=== PATIENT | male | born 1985 | race Caucasian/White ===

== ENCOUNTER 2017-03-06 20:31 | Emergency (ER) | payer MEDICAID ==
[~2017-03-06] VITALS: Ht 182.9 cm; Wt 70.0 kg
[~2017-03-06 20:31] MED LIST: BACT800T5 PO
[2017-03-06 20:33] VITALS: BP 146/98; PULSE 77; RESP 15; TEMP 98.3; O2SAT 99
[2017-03-06] MEDS ORDERED: CEPHALEXIN MONOHYDRATE 500 MG CAP PO ONE (22:15)
[2017-03-06] MEDS ORDERED: SULFAMETHOXAZOLE-TRIMETHOPRIM DS 800-160 MG TAB PO ONE (22:15)
[2017-03-06] MEDS ORDERED: CEPH-460 PO (22:16)
[2017-03-06] MEDS ORDERED: BACT800T5 PO (22:16)
--- NOTE | 2017-03-06 22:22 | PD ---
HPI Chief Complaint: Bite or Sting Time Seen by Provider: 22:11 Travel History International Travel<30 days: No Contact w/Intl Traveler<30days: No Traveled to known affect area: No History of Present Illness HPI 31-year-old white male presents to emergency department with complains of a area of redness and swelling to the right anterior thigh. He is unsure whether this was an insect bite. The area is been present now for the past 2-3 days. He denies any fever or chills. No drainage. It has become increasing painful and swollen. There is no exacerbating or palliative a activities. Pain is mild to moderate. Denies any recent illness or trauma. No history of prior skin infections. PFSH Past Medical History Narrative Medical Depression, kidney stones Autoimmune Disease: No Anxiety: No Depression: Yes Cancer: No Cardiovascular Problems: No Cerebrovascular Accident: Yes (TIA) Diabetes: No Patient Takes Glucophage: No Diminished Hearing: No Endocrine: No Gastrointestinal Disorders: No Genitourinary: Yes Immune Disorder: No Implanted Vascular Access Dvce: No Kidney Stones: Yes (2009) Musculoskeletal: Yes Psychiatric: Yes Reproductive: No Respiratory: No Immunizations Current: Yes Tetanus Vaccination: > 5 Years Influenza Vaccination: Yes Past Surgical History Surgical History: No Previous Surgery Other Surgery: No Social History Alcohol Use: Yes (RARE) Tobacco Use: Yes (1/2 ppd) Substance Use: Yes (MARIJUANA,) Allergies-Medications (Allergen,Severity, Reaction): Coded Allergies: penicillin G (Unverified Allergy, Severe, Rash, 03/06/17) Reported Meds & Prescriptions Reported Meds & Active Scripts Active Bactrim DS (Sulfamethoxazole-Trimethoprim) 800-160 Mg Tab 1 Tab PO BID Keflex (Cephalexin) 500 Mg Cap 500 Mg PO Q6H Review of Systems General / Constitutional: No: Fever Eyes: No: Visual changes HENT: No: Headaches Cardiovascular: No: Chest Pain or Discomfort Respiratory: No: Shortness of Breath Gastrointestinal: No: Abdominal Pain Genitourinary: No: Dysuria Musculoskeletal: Positive: Edema, No: Pain Skin: Positive Rash, Positive Lesions Neurologic: No: Weakness Psychiatric: No: Depression Endocrine: No: Polydipsia Hematologic/Lymphatic: No: Easy Bruising Physical Exam Narrative GENERAL: This is a well-nourished, well-developed patient, in no apparent distress. SKIN: Patient has a area of erythema, warmth and tenderness measuring approximately 3 x 3 cm to the anterior right. There is a small central pustule which is unroofed with a 18-gauge needle. Small amount of pus., ecchymoses or lesions. Warm and dry. HEAD: Atraumatic. Normocephalic. EYES: PERRL, EOMI, no discharge or injection. No scleral icterus. EARS: Clear NOSE: Nasal turbinates appear normal. THROAT: Mucosa pink and moist. Airway patent. NECK: Trachea midline. supple, moves head freely. LUNGS: Clear to auscultation. CV: Regular in rhythm. ABDOMEN: Soft nontender. EXT: No clubbing cyanosis or edema. Data Data Last Documented VS Vital Signs Date Time Temp Pulse Resp B/P (MAP) Pulse Ox O2 Delivery O2 Flow Rate FiO2 03/06/17 20:33 98.3 77 15 146/98 (114) 99 Room Air Orders Orders Cephalexin (Keflex) (03/06/17 22:15) Sulfamet-Trimeth Ds 800-160 Mg (Bactrim (03/06/17 22:15) Ed Discharge Order (03/06/17 22:17) MDM Medical Decision Making Medical Screen Exam Complete: Yes Emergency Medical Condition: Yes Medical Record Reviewed: Yes Differential Diagnosis MDM: High Differential diagnoses: Abscess, folliculitis, cellulitis, lymphangitis, abrasion, contact dermatitis Narrative Course Patient is given Keflex 500 and Septra DS by mouth. This is a right thigh abscess Diagnosis Primary Impression: Abscess of right thigh Patient Instructions: General Instructions Additional Instructions: Rest. Elevation. keep clean and dry. Warm compresses. Daily wound care with soap, water and Neosporin. Three Advil every 6 hours. Bactrim DS and Keflex. Follow-up with a primary care doctor in one week. Return to the ER for any problems. Med/Other Pt SpecificInfo: Prescription(s) given Scripts Sulfamethoxazole-Trimethoprim (Bactrim DS) 800-160 Mg Tab 1 TAB PO BID for Infection, #20 TAB 0 Refills Prov: Tatiana Vogt DO 03/06/17 Cephalexin (Keflex) 500 Mg Cap 500 MG PO Q6H for Infection, #30 CAP 0 Refills Prov: Tatiana Vogt DO 03/06/17 Disposition: 01 DISCHARGE HOME Condition: Stable Tony Lucio Mar 06, 2017 22:22
== END 2017-03-06 22:32 | disposition home or self-care (01) ==
LOC: NEPD 20:31
DX: L02.415 Cutaneous abscess of right lower limb (principal); Z72.0 Tobacco use
CPT/HCPCS: 99284